=== PATIENT | female | born 1960 | race Caucasian/White ===

== ENCOUNTER 2023-01-13 09:16 | Emergency (ER) | payer MEDICAID ==
[~2023-01-13] VITALS: Ht 154.9 cm; Wt 113.4 kg
[2023-01-13 09:20] VITALS: BP 187/97; PULSE 102; RESP 20; TEMP 99
[2023-01-13 12:22] VITALS: BP 163/90; PULSE 91; RESP 20; TEMP 98.9; O2SAT 98
== END 2023-01-13 12:22 | disposition home or self-care (01) ==
LOC: MED 09:16
DX: J06.9 Acute upper respiratory infection, unspecified (principal); I10 Essential (primary) hypertension; Z79.899 Other long term (current) drug therapy
CPT/HCPCS: 99283

== ENCOUNTER 2023-06-24 14:35 | Emergency (ER) | payer MEDICAID ==
[~2023-06-24] VITALS: Ht 160 cm; Wt 96.2 kg
[2023-06-24 15:18] VITALS: BP 176/88; PULSE 69; RESP 16; TEMP 96.8; O2SAT 98
[2023-06-24 16:22] LABS: BASOPHILS % (AUTO) 0.3 % (0.0-2.0); EOSINOPHILS # (AUTO) 0.3 K/uL (0-0.4); EOSINOPHILS % (AUTO) 4.4 % (0.0-4.0); HEMATOCRIT 34.3 % (36-48); HEMOGLOBIN 11.5 g/dL (12.0-16.0); LYMPHOCYTES # (AUTO) 1.4 K/uL (2.5-16.5); LYMPHOCYTES % (AUTO) 21.9 % (20.5-51.1); MEAN CORPUSCULAR HEMOGLOBIN 30 pg (27-31); MEAN CORPUSCULAR HGB CONC 33 g/dL (33-37); MEAN CORPUSCULAR VOLUME 90.1 fL (80-94); MONOCYTES # (AUTO) 0.5 K/uL (0.8-1.0); MONOCYTES % (AUTO) 7.6 % (1.7-9.3); NEUTROPHILS # (AUTO) 4.2 K/uL (1.8-7.7); NEUTROPHILS % (AUTO) 65.8 % (42.2-75.2); PLATELET COUNT (AUTO) 149 K/uL (140-450); RED BLOOD CELL COUNT(AUTO) 3.81 MIL/uL (4.20-5.40); RED CELL DISTRIBUTION WIDTH 15.7 % (11.6-13.7); WHITE BLOOD COUNT (AUTO) 6.3 K/uL (4.8-10.8)
[2023-06-24 16:53] LABS: ALBUMIN 3.7 g/dL (3.4-5.0); ALKALINE PHOSPHATASE 155 U/L (50-136); ANION GAP 11.3 (8-16); ASPARTATE AMINOTRANSFERASE 28 U/L (15-37); CALCIUM 8.7 mg/dL (8.5-10.1); CARBON DIOXIDE 26.4 mmol/L (21-32); CHLORIDE 105 mmol/L (98-107); GFR ARICAN-AMERICAN 72 mL/min (>90); GFR NON ARICAN-AMERICAN 60 mL/min (>90); GLUCOSE 121 mg/dL (74-106); POTASSIUM 3.7 mmol/L (3.5-5.1); SODIUM SERUM 139 mmol/L (136-145); TOTAL BILIRUBIN 0.3 mg/dL (0.0-1.0); TOTAL PROTEIN, SERUM 7.9 g/dL (6.4-8.2); UREA NITROGEN, BLOOD 22 mg/dL (7-18)
[2023-06-24 16:56] LABS: ALANINE AMINOTRANSFERASE 19 U/L (12-78)
[2023-06-24 18:22] VITALS: BP 155/88; PULSE 69; RESP 16; TEMP 96.8; O2SAT 98
== END 2023-06-24 18:22 | disposition home or self-care (01) ==
LOC: MED 14:35
DX: R53.1 Weakness (principal); I10 Essential (primary) hypertension; Z79.899 Other long term (current) drug therapy
CPT/HCPCS: 36415; 71045; 80053; 84484; 85025; 93005; 99285

== ENCOUNTER 2023-10-22 14:30 | Emergency (ER) | payer MEDICAID ==
[~2023-10-22] VITALS: Ht 152.4 cm; Wt 94.8 kg
[2023-10-22 15:00] VITALS: BP 185/99; PULSE 100; RESP 17; TEMP 97.7; O2SAT 99
[2023-10-22 15:45] LABS: BASOPHILS % (AUTO) 0.5 % (0.0-2.0); EOSINOPHILS # (AUTO) 0.1 K/uL (0-0.4); HEMATOCRIT 27.8 % (36-48); HEMOGLOBIN 9.1 g/dL (12.0-16.0); LYMPHOCYTES % (AUTO) 16.9 % (20.5-51.1); MEAN CORPUSCULAR HEMOGLOBIN 31 pg (27-31); MEAN CORPUSCULAR HGB CONC 33 g/dL (33-37); MEAN CORPUSCULAR VOLUME 93.7 fL (80-94); MONOCYTES # (AUTO) 0.4 K/uL (0.8-1.0); MONOCYTES % (AUTO) 6.4 % (1.7-9.3); NEUTROPHILS # (AUTO) 4.5 K/uL (1.8-7.7); NEUTROPHILS % (AUTO) 75.2 % (42.2-75.2); PLATELET COUNT (AUTO) 234 K/uL (140-450); RED BLOOD CELL COUNT(AUTO) 2.96 MIL/uL (4.20-5.40); RED CELL DISTRIBUTION WIDTH 18.7 % (11.6-13.7)
[2023-10-22 15:54] LABS: ANION GAP 13.5 (8-16); CARBON DIOXIDE 22.9 mmol/L (21-32); CREATININE 1.1 mg/dL (0.6-1.3); POTASSIUM 3.4 mmol/L (3.5-5.1)
[2023-10-22 15:58] LABS: INR 1.05 (0.8-1.2); PARTIAL THROMBOPLASTIN TIME 26.8 secs (22-35.6)
[2023-10-22 16:04] LABS: ALANINE AMINOTRANSFERASE 18 U/L (12-78); ALKALINE PHOSPHATASE 213 U/L (50-136); ASPARTATE AMINOTRANSFERASE 29 U/L (15-37); BILIRUBIN,DIRECT 0.2 mg/dL (0.0-0.3); TOTAL BILIRUBIN 0.4 mg/dL (0.0-1.0); TOTAL PROTEIN, SERUM 8.1 g/dL (6.4-8.2)
[2023-10-22 16:20] LABS: FLU A ANTIGEN negative (NEGATIVE); FLU B ANTIGEN NEGATIVE (NEGATIVE)
[2023-10-22 17:00] VITALS: BP 168/87; RESP 18; TEMP 97.4
[2023-10-22] MEDS: ONDANSETRON 4 MG/2 ML VIAL IVP ONE (17:16)
[2023-10-22] MEDS: KETOROLAC 30 MG/ML VIAL IVP ONE (17:18)
[2023-10-22] MEDS: NACL 0.9% 1,000 ML IV ONE (17:19)
[2023-10-22 17:20] VITALS: PULSE 85; O2SAT 97
[2023-10-22] MEDS ORDERED: IBUP-2213 PO (18:32)
[2023-10-22] MEDS ORDERED: ONDA-188 SL (18:32)
== END 2023-10-22 18:39 | disposition home or self-care (01) ==
LOC: MED 14:30
DX: R42 Dizziness and giddiness (principal); R51.9 Headache, unspecified; I10 Essential (primary) hypertension; Z20.822 Contact with and (suspected) exposure to COVID-19; Z79.1 Long term (current) use of non-steroidal anti-inflammatories (NSAID)
CPT/HCPCS: 36415; 71045; 80048; 80076; 82948; 83880; 84484; 85025; 85610; 85730; 86886; 86900; 86901; 87426; 87804; 93005; 96361; 96374; 96375; 99285; J1885; J2405; J7030